=== PATIENT | female | born 1985 | race Two or more races ===

== ENCOUNTER 2018-04-12 23:33 | Emergency (ER) | payer OTHER ==
[~2018-04-12] VITALS: Ht 165.1 cm; Wt 63.0 kg
[2018-04-12 23:35] VITALS: BP 141/83
[2018-04-13 00:38] LABS: BASOPHILS # (AUTO) 0.05 x10^3/uL (0-0.1); BASOPHILS % (AUTO) 1 % (0-1); EOSINOPHILS # (AUTO) 0.37 x10^3/uL (0-0.4); EOSINOPHILS % (AUTO) 5 % (1-7); LYMPHOCYTES # (AUTO) 2.22 x10^3/uL (1-3.4); LYMPHOCYTES % (AUTO) 29 % (22-44); MD NO; MEAN CORPUSCULAR HEMOGLOBIN 31.4 pg (27.0-34.8); MEAN CORPUSCULAR HGB CONC 33.8 g/dL (32.4-35.8); MEAN CORPUSCULAR VOLUME 92.9 fL (80-100); MEAN PLATELET VOLUME 8.1 fL (7.4-10.4); MONOCYTES # (AUTO) 0.63 x10^3/uL (0.2-0.8); MONOCYTES % (AUTO) 8 % (2-9); NEUTROPHILS % (AUTO) 57 % (42-75); PLATELET COUNT 269 x10^3/uL (130-400); RED BLOOD COUNT 4.57 x10^6/uL (3.82-5.3); RED CELL DISTRIBUTION WIDTH 13.1 % (9.6-15.2)
[2018-04-13] MEDS ORDERED: MAGNESIUM CITRATE 300ML ORAL SOL ONE (00:55)
[2018-04-13] MEDS ORDERED: BISACODYL 5 MG EC TABLET ONE (00:55)
[2018-04-13] MEDS ORDERED: BISACODYL 5 MG EC TABLET PO ONE (01:00)
[2018-04-13] MEDS ORDERED: MAGNESIUM CITRATE 300ML ORAL SOL PO ONE (01:00)
== END 2018-04-13 01:02 | disposition home or self-care (01) ==
LOC: ED 23:59
DX: K59.00 Constipation, unspecified (principal)
CPT/HCPCS: 36415; 74021; 76830; 85025; 99285

== ENCOUNTER 2018-05-12 22:07 | Emergency (ER) | payer SELFPAY ==
[~2018-05-12] VITALS: Ht 165.1 cm; Wt 62.0 kg
[2018-05-12 22:37] VITALS: BP 123/74
== END 2018-05-13 00:40 | disposition home or self-care (01) ==
LOC: ED 05-13 00:21
DX: N63.0 Unspecified lump in unspecified breast (principal)
CPT/HCPCS: 99281